=== PATIENT | female | born 1975 | race African-American/Black ===

== ENCOUNTER 2016-04-05 16:15 | Emergency (ER) | payer SELFPAY ==
[~2016-04-05 16:15] MED LIST: MEDR150D3 IM
[2016-04-05 16:42] VITALS: BP 141/84
[2016-04-05] MEDS ORDERED: METH4TAB2 PO (18:23)
[2016-04-05] MEDS ORDERED: NAPR500T8 PO (18:23)
[2016-04-05] MEDS ORDERED: HYDR-971 PO (18:23)
--- NOTE | 2016-04-05 18:25 | PHYS DOC ---
Past Medical History Past Medical History: Hypertension, Other Additional Past Medical Histor: noncompliant with medications,RA Past Surgical History: No Surgical History Alcohol Use: Rarely Drug Use: Marijuana Adult General Chief Complaint Chief Complaint: LOWER EXTREMITY SWELLING HPI HPI Patient is a 40 year old female with history of hypertension who presents today with chronic bilateral lower extremity swelling due to rheumatoid arthritis and callous. Patient states she believes the right foot is more swollen than normal. She states she has a wound on her right foot from chronic callous that has been there for months. Denies any history of diabetes. Review of Systems Review of Systems Constitutional: Denies fever or chills [] Eyes: Denies change in visual acuity, redness, or eye pain [] HENT: Denies nasal congestion or sore throat [] Respiratory: Denies cough or shortness of breath [] Cardiovascular: No additional information not addressed in HPI [] GI: Denies abdominal pain, nausea, vomiting, bloody stools or diarrhea [] : Denies dysuria or hematuria [] Musculoskeletal: Denies back pain or joint pain [] Integument: Bilateral feet swelling and pain Neurologic: Denies headache, focal weakness or sensory changes [] Endocrine: Denies polyuria or polydipsia [] Allergies Allergies Allergies Coded Allergies Type Severity Reaction Last Updated Verified No Known Drug Allergies 06/21/13 No Physical Exam Physical Exam Constitutional: Well developed, well nourished, no acute distress, non-toxic appearance. [] HENT: Normocephalic, atraumatic, bilateral external ears normal, oropharynx moist, no oral exudates, nose normal. [] Eyes: PERRLA, EOMI, conjunctiva normal, no discharge. [] Neck: Normal range of motion, no tenderness, supple, no stridor. [] Cardiovascular:Heart rate regular rhythm, no murmur [] Lungs & Thorax: Bilateral breath sounds clear to auscultation [] Abdomen: Bowel sounds normal, soft, no tenderness, no masses, no pulsatile masses. [] Skin: Bilateral lower extremities with trace edema around the MTP joints due to rheumatoid arthritis. Patient has no history of gout. Both MTP joints on the lateral aspects have callous. The right foot has a callous on the dorsal aspect of the foot along the distal end of the second and third metatarsal.The callous has an open are with no drainage. Patient states the area has been open for months. +2 bilateral pedal pulses. Cap refill less than 2 seconds bilateral lower extremities. Back: No tenderness, no CVA tenderness. [] Extremities: No tenderness, no cyanosis, no clubbing, ROM intact, no edema. [] Neurologic: Alert and oriented X 3, normal motor function, normal sensory function, no focal deficits noted. [] Psychologic: Affect normal, judgement normal, mood normal. [] Current Patient Data Vital Signs Vital Signs Date Time Temp Pulse Resp B/P Pulse Ox O2 Delivery O2 Flow Rate FiO2 04/05/16 16:42 98.2 77 18 141/84 99 Room Air 98.2 EKG EKG [] Radiology/Procedures Radiology/Procedures [] Course & Med Decision Making Course & Med Decision Making Pertinent Labs and Imaging studies reviewed. (See chart for details) Patient is in the ED with bilateral feet swelling and pain due to rheumatoid arthritis and callous. She was discharged with bilateral orthopedic shoe is applied by the ED RN, neurovascular exam done by me is normal. +2 bilateral pedal pulses, cap refill less than 2 seconds to bilateral lower extremities. I recommended she follows up with an orthopedic doctor or photographer scientific which i provided. Discharged with Medrol Dosepak, naproxen, and 10 tablets of [place]. Dragon Disclaimer Dragon Disclaimer This electronic medical record was generated, in whole or in part, using a voice recognition dictation system. Departure Departure Impression: Primary Impression: Callus of foot Additional Impression: Rheumatoid arthritis Disposition: 01 HOME, SELF-CARE Condition: STABLE Referrals: NON,STAFF (PCP) ANTONIO GLORIA DPM See this doctor in one week Patient Instructions: Corns and Calluses-SportsMed, Rheumatoid Arthritis Additional Instructions: You were seen for rheumatoid arthritis and callous. Please take the prescribed medicines as ordered. Follow-up with the provided photographer scientific in one week. Ice and elevate extremities. Scripts Naproxen 500 Mg Tablet.dr1 Tab PO BID #60 TAB Ref 2 Prov:MUTUNGA,SAMIR COPYING MACHINE MECHANIC 04/05/16 Hydrocodone/Apap 5-325 ([place] 5-325 Tablet)1 Each Tablet1-2 Tab PO Q4-6HRS #14 TAB Prov:MUTUNGA,SAMIR COPYING MACHINE MECHANIC 04/05/16 Methylprednisolone (Medrol)4 Mg Tab.ds.pk1 Pkg PO UD #1 PKG Prov:SAMIR PORTILLO [employer]YING MACHINE MECHANIC 04/05/16 Problem Qualifiers Additional Impression: Rheumatoid arthritis Rheumatoid arthritis location: foot Rheumatoid factor presence: unspecified presence Laterality: bilateral Qualified Code: M06.9 - Rheumatoid arthritis , unspecified SAMIR PORTILLO [employer]YING MACHINE MECHANIC Apr 05, 2016 18:25
[2016-04-05] MEDS ORDERED: HYDROCODONE/APAP 5/325MG TABLET. PO ONE (18:45)
== END 2016-04-05 18:46 | disposition home or self-care (01) ==
LOC: ER 16:15
DX: L03.116 Cellulitis of left lower limb (principal); L03.115 Cellulitis of right lower limb; M06.9 Rheumatoid arthritis, unspecified; I10 Essential (primary) hypertension; F12.10 Cannabis abuse, uncomplicated
CPT/HCPCS: 99283

== ENCOUNTER 2018-10-19 18:47 | Emergency (ER) | payer OTHER ==
[~2018-10-19] VITALS: Ht 160 cm; Wt 49.9 kg
[~2018-10-19 18:47] MED LIST changes: +HYDR-3164 PO; +METH4TAB2 PO; +NAPR500T8 PO
[2018-10-19 19:16] VITALS: BP 150/98
[2018-10-19] MEDS ORDERED: DEXAMETHASONE 4 MG TABLET PO ONE (20:00)
--- NOTE | 2018-10-19 20:00 | PHYS DOC ---
Past Medical History Past Medical History: Hypertension, Other Additional Past Medical Histor: noncompliant with medications,RA Past Surgical History: No Surgical History Alcohol Use: Occasionally Drug Use: Marijuana Adult General Chief Complaint Chief Complaint: SORE THROAT HPI HPI Patient is a 42 year old female presents to the ER for sore throat has been ongoing since night. The patient also she been having cough, and runny nose. She rates her pain as 8 out of 10 and sharp. Not tried any interventions prior to arrival. Review of Systems Review of Systems Constitutional: Denies fever or chills [] Eyes: Denies change in visual acuity, redness, or eye pain [] HENT: Reports sore throats Respiratory: Denies cough or shortness of breath [] Cardiovascular: No additional information not addressed in HPI [] GI: Denies abdominal pain, nausea, vomiting, bloody stools or diarrhea [] : Denies dysuria or hematuria [] Musculoskeletal: Denies back pain or joint pain [] Integument: Denies rash or skin lesions [] Neurologic: Denies headache, focal weakness or sensory changes [] Endocrine: Denies polyuria or polydipsia [] Complete systems were reviewed and found to be within normal limits, except as documented in this note. Allergies Allergies Allergies Coded Allergies Type Severity Reaction Last Updated Verified No Known Drug Allergies 06/21/13 No Physical Exam Physical Exam Constitutional: Well developed, well nourished, no acute distress, non-toxic appearance. [] HENT: Normocephalic, atraumatic, bilateral external ears normal, has three oral ulcers at the back of the mouth, tonsils are wnl, erythema in the back of the mouth, no exudate. Eyes: PERRLA, EOMI, conjunctiva normal, no discharge. [] Neck: Normal range of motion, no tenderness, supple, no stridor. [] Cardiovascular:Heart rate regular rhythm, no murmur [] Lungs & Thorax: Bilateral breath sounds clear to auscultation [] Abdomen: Bowel sounds normal, soft, no tenderness, no masses, no pulsatile masses. [] Skin: Warm, dry, no erythema, no rash. [] Back: No tenderness, no CVA tenderness. [] Extremities: No tenderness, no cyanosis, no clubbing, ROM intact, no edema. [] Neurologic: Alert and oriented X 3, normal motor function, normal sensory function, no focal deficits noted. [] Psychologic: Affect normal, judgement normal, mood normal. [] Current Patient Data Vital Signs Vital Signs Date Time Temp Pulse Resp B/P (MAP) Pulse Ox O2 Delivery O2 Flow Rate FiO2 10/19/18 19:16 98.4 61 16 150/98 (115) 100 Room Air 98.4 EKG EKG [] Radiology/Procedures Radiology/Procedures [] Course & Med Decision Making Course & Med Decision Making Pertinent Labs and Imaging studies reviewed. (See chart for details) Will give decadron. Discussed possibility of being oral herpes. Patient did not think this was a possibility if it does not improve will follow up with health department. Dragon Disclaimer Dragon Disclaimer This electronic medical record was generated, in whole or in part, using a voice recognition dictation system. Departure Departure Impression: Primary Impression: Sore throat Disposition: HOME, SELF-CARE Condition: STABLE Referrals: NO PCP (PCP) Patient Instructions: Sore Throat Additional Instructions: Thank you for visiting [facility]. We appreciate you trusting us with your care. If any additional problems come up don't hesitate to return to visit us. Please follow up with your primary care provider so they can plan additional care if needed and know about the problem that you had. If symptoms worsen come back to the Emergency Department. Any concerning symptoms that start such as chest pain, shortness of air, weakness or numbness on one side of the body, running high fevers or any other concerning symptoms return to the ER. XANDER ASCENCIO APRN Oct 19, 2018 20:00
== END 2018-10-19 20:16 | disposition home or self-care (01) ==
LOC: ER 18:47
DX: J02.9 Acute pharyngitis, unspecified (principal); I10 Essential (primary) hypertension
CPT/HCPCS: 87070; 87880; 99283; J8540; 96361; 99284